=== PATIENT | female | born 1970 | race Caucasian/White ===

== ENCOUNTER 2018-04-03 10:36 | Emergency (ER) | payer OTHER ==
[~2018-04-03] VITALS: Ht 162.6 cm; Wt 40.8 kg
[~2018-04-03 10:36] MED LIST: AZITHROMYCIN250 M1 PO; DILAUDID2 M1 PO; GUAIFEN-CODEIN118 M1 PO; GUAIFENESIN-COD10 ML PO; MEDROL4 M2 PO; MORPHINE SULFAT30 M3 PO; NEURONTIN800 M2 PO; OXYCODONE HCL5 M1 PO; PROAIR HFA8.5 GM INH; SERTRALINE HCL50 MG PO; TAPAZOLE5 MG PO; TIZANIDINE HCL4 M1 PO; TRAZODONE HCL50 M1 PO; ZITHROMAX250 M2 PO
--- NOTE | 2018-04-03 10:59 | ED INFLUENZA/URI COMPLAINT ---
History of Present Illness General Chief Complaint: Dyspnea (COPD, CHF, Other) Stated Complaint: FEVER,COUGH,WEAKNESS,SOB Source: patient, family Exam Limitations: no limitations Vital Signs & Intake/Output Vital Signs & Intake/Output Vital Signs Date Time Temp Pulse Resp B/P B/P Pulse O2 O2 Flow FiO2 Mean Ox Delivery Rate 04/03 1221 98.9 79 20 98/63 94 Room Air 04/03 1210 92 Room Air 04/03 1042 97.6 89 18 118/80 91 Room Air Allergies Coded Allergies: No Known Allergies (01/20/18) Reconcile Medications Albuterol Sulfate (Proair Hfa) 8.5 GM HFA.AER.AD 2 PUFF INH Q4HR PRN WHEEZING Albuterol Sulfate (Proair Hfa) 90 MCG HFA.AER.AD 2 PUF INH Q4-6 PRN PRN BRONCHITIS Albuterol Sulfate 1.25 MG/3 ML VIAL.NEB 1 Vial INH/KELIN Q4-6 PRN SHORTNESS OF BREATH Azithromycin (Zithromax) 250 MG TABLET 1 DP PO AD bronchtis 2 the first day followed by 1 for days 2-5 Benzonatate (Tessalon Perle) 100 MG CAPSULE 1 CAP PO TID COUGH Codeine Phosphate/Guaifenesi (Guaifen-Codeine 100-10 MG/5 Ml) 10 MG-100 MG/5 ML LIQUID 10 ML PO Q6HR PRN COUGH Codeine Phosphate/Guaifenesi (Cheratussin AC Syrup) 10 MG-100 MG/5 ML LIQUID 10 ML PO BID PRN COUGH Fluticasone Propionate (Flonase Allergy Relief) 50 MCG/ACTUATION SPRAY.SUSP 2 SPRAY NELY DAILY PRN CONGESTION Gabapentin (Neurontin) 800 MG TABLET 1 TAB PO TID NERVE PAIN (Reported) Hydromorphone HCl (Dilaudid) 2 MG TABLET 1 TAB PO Q3 PRN SEVERE PAIN Levofloxacin (Levaquin) 500 MG TABLET 1 TAB PO DAILY BRONCHITIS [magic mouthwash] 10 ML PO TID PRN PHARYNGITIS 1:1:1 EQUAL PARTS SWISH AND SWALLOW Methimazole (Tapazole) 5 MG TABLET 5 MG PO BID hyperthyroid Methylprednisolone. (Medrol) 4 MG TAB.DS.PK 1 DP PO AD BRONCHITIS 6 on day 1 then reduce by one tablet daily until gone Methylprednisolone. (Medrol) 4 MG TAB.DS.PK 1 DP PO AD INFLAMMATION 6 on day 1 then reduce by one tablet daily until gone Morphine Sulfate (Morphine Sulfate ER) 30 MG TABLET.ER 1 TAB PO BID PAIN ( Reported) Oxycodone HCl 5 MG TABLET 1 TAB PO Q6H PAIN (Reported) Prednisone 10 MG TABLET 1 TAB PO DAILY INFLAMMATIN DAY1/DAY2 FOUR TAB DAY3/DAY4 THREE TAB DAY5/DAY6 TWO TABS DAY7 ONE TAB Sertraline HCl 50 MG TABLET 1 TAB PO DAILY MENTAL HEALTH (Reported) Tizanidine HCl 4 MG TABLET 1 TAB PO TID MUSCLE RELAXER (Reported) Trazodone HCl 50 MG TABLET 1 TAB PO PRN SLEEP (Reported) Triage Note: REPORTS COUGH X 3 DAYS AND WORSENING. ALSO LOOSING HER VOICE. CONOGESTED COUGH NOTED AT TRIAGE, NON PRODUCTIVE. Triage Nurses Notes Reviewed? yes Onset: Gradual Duration: constant Timing: recent history Severity: severe Severity Numbers: 7 HPI: Patient is a 47-year-old female with a past medical history of emphysema for smoker who since emergent with a three-day history of nonproductive cough chills body aches weakness fatigue and sore throat. Positive sick contacts at home. Patient has been taking her Ventolin with relief of symptoms. Denies any chest pain arm pain jaw pain nausea vomiting leg swelling hemoptysis or fevers patient also complaining of hoarseness AND sore throat (Teo Greco) Past History Travel History Traveled to [place] past 21 day No Medical History Any Pertinent Medical History? 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 No (Teo Greco) Review of Systems Review of Systems Constitutional: Reports: no symptoms. EENTM: Reports: see HPI. Respiratory: Reports: see HPI, cough. Cardiovascular: Reports: no symptoms. GI: Reports: no symptoms. Genitourinary: Reports: no symptoms. Musculoskeletal: Reports: see HPI. Skin: Reports: no symptoms. Neurological/Psychological: Reports: no symptoms. Hematologic/Endocrine: Reports: no symptoms. Immunologic/Allergic: Reports: no symptoms. All Other Systems: Reviewed and Negative (Teo Greco) Physical Exam Physical Exam General Appearance: no apparent distress, alert, thin Head: atraumatic Eyes: Bilateral: normal appearance, PERRL, EOMI. Ears, Nose, Throat: moist mucous membrane, hearing grossly normal, Tympanic normal, nasal congestion, pharyngeal erythema Neck: normal inspection, supple Respiratory: chest non-tender, no respiratory distress, wheezing Cardiovascular: regular rate/rhythm Gastrointestinal: normal bowel sounds, soft, non-tender Extremities: normal inspection, no edema Neurologic/Psych: no motor/sensory deficits, awake, alert, oriented x 3, normal gait Skin: intact, normal color, warm/dry Core Measures Sepsis Present: No Sepsis Focused Exam Completed? No (Teo Greco) Progress Differential Diagnosis: influenza, meningitis, neutropenia, otitis, pneumonia, pharyngitis, sinusitis Plan of Care: Orders Procedure Date/time Status THROAT CULTURE W/QUICK STREP 04/03 1202 Active Patient on initial presentation is resting comfortably at bedside no respiratory distress mild expiratory wheezing oxygen saturation 94% Patient was afebrile It was noted that patient's initial oxygen saturation was 91% at rest. Patient does have audible wheezing however no respiratory distress Chest x-ray shows progressive emphysema however no overt findings of pneumonia patient was ambulated down the hallway after nebulizer in which nursing staff notes that patient had 89% oxygen saturation with no respiratory distress, I discussed with patient the recommendation of admission to the hospital for COPD and bronchitis where patient had a long talk with her family members and decided that she wanted to try the occasions at home first and will return if symptoms worsen. I discussed the risks of leaving AGAINST MEDICAL ADVICE in which she was aware. Upon discharge patient looks well no apparent distress and will comply with discharge instructions and had no questions Diagnostic Imaging: Viewed by Me: Radiology Read. Radiology Impression: SEE COMMENTS CXR Impression: SEE COMMENTS Initial ED EKG: none Comments: PATIENT: KELSEY SANDRA PRESENT AGE: 47 PATIENT ACCOUNT NO: [id number] : 69 LOCATION: [facility] ORDERING PHYSICIAN: Teo HARRIS SERVICE DATE: 04/03/18 EXAM TYPE: RAD - XRY-CHEST XRAY, TWO VIEWS EXAMINATION: XR CHEST CLINICAL INFORMATION: Nonproductive cough and hypoxia COMPARISON: Previous chest x-rays most recent Mar 23 2018 TECHNIQUE: 2 views of the chest were obtained. FINDINGS: The cardiac and mediastinal contours are stable. There is evidence of severe emphysematous change with marked upper lobe bulla and crowding of lung markings in the lower lung lamar. This does not appear appreciably changed. No definite evidence of a pneumonia is seen. There are 2 adjacent left upper lobe nodules that do not appear appreciably changed. There is a nodular density that projects over the right anterior first rib that is stable as well. There is no pleural effusion or pneumothorax. There are degenerative changes of the spine. IMPRESSION: Severe emphysema with marked bullous disease in the upper lungs. No evidence for acute disease in the chest. 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:KELSEY DATE/TIME TRANSCRIBED:04/03/181138 (Ruben HARRIS,Teo) Departure Departure Disposition: HOME OR SELF CARE Condition: Stable Clinical Impression Primary Impression: Bronchitis Secondary Impressions: COPD (chronic obstructive pulmonary disease), Pharyngitis Referrals: Pratibha HIDALGO,Vijaya (PCP/Family) Additional Instructions: As discussed begin the prescription of albuterol vials for your nebulizer at home, continue your previously prescribed rescue inhaler, begin the prescription of Magic mouthwash for sore throat, Flonase for congestion, Tessalon Perles and Cheratussin for cough Levaquin for your symptoms, Medrol Dosepak for inflammation 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 Prescriptions waiting at [facility]. If symptoms worsen or if YOU develop new concerning symptoms return to emergency room Departure Forms: Customer Survey General Discharge Information Prescriptions: Current Visit Scripts Levofloxacin (Levaquin) 1 TAB PO DAILY #10 TAB Benzonatate (Tessalon Perle) 1 CAP PO TID #15 CAP Codeine Phosphate/Guaifenesi (Cheratussin AC Syrup) 10 ML PO BID PRN COUGH #100 ML Fluticasone Propionate (Flonase Allergy Relief) 2 SPRAY NELY DAILY PRN CONGESTION #1 BOT Albuterol Sulfate 1 Vial INH/KELIN Q4-6 PRN SHORTNESS OF BREATH #150 ML Methylprednisolone. (Medrol) 1 DP PO AD #1 DP 6 on day 1 then reduce by one tablet daily until gone [magic mouthwash] 10 ML PO TID PRN PHARYNGITIS #100 ML 1:1:1 EQUAL PARTS SWISH AND SWALLOW Prednisone 1 TAB PO DAILY #19 TAB DAY1/DAY2 FOUR TAB DAY3/DAY4 THREE TAB DAY5/DAY6 TWO TABS DAY7 ONE TAB (Teo Greco) PA/PLAN MANAGER Co-Sign Statement Statement: ED Attending supervision documentation- I saw and evaluated the patient. I have also reviewed all the pertinent lab results and diagnostic results. I agree with the findings and the plan of care as documented in the PA's/PLAN MANAGER's documentation. x I have reviewed the ED Record and agree with the PA's/PLAN MANAGER's documentation. [] Additions or exceptions (if any) to the PAs/PLAN MANAGER's note and plan are summarized below: [] (Jeremy HIDALGO,Gamal)
--- NOTE | 2018-04-03 11:47 | RADIOLOGY REPORT ---
EXAMINATION: XR CHEST CLINICAL INFORMATION: Nonproductive cough and hypoxia COMPARISON: Previous chest x-rays most recent Mar 23 2018 TECHNIQUE: 2 views of the chest were obtained. FINDINGS: The cardiac and mediastinal contours are stable. There is evidence of severe emphysematous change with marked upper lobe bulla and crowding of lung markings in the lower lung lamar. This does not appear appreciably changed. No definite evidence of a pneumonia is seen. There are 2 adjacent left upper lobe nodules that do not appear appreciably changed. There is a nodular density that projects over the right anterior first rib that is stable as well. There is no pleural effusion or pneumothorax. There are degenerative changes of the spine. IMPRESSION: Severe emphysema with marked bullous disease in the upper lungs. No evidence for acute disease in the chest.
[2018-04-03] MEDS ORDERED: ALBUTEROL1.25 MG/1 INH/SOL (11:50)
[2018-04-03] MEDS ORDERED: TESSALON PERLE100 M1 PO (11:50)
[2018-04-03] MEDS ORDERED: LEVAQUIN500 M1 PO (11:50)
[2018-04-03] MEDS ORDERED: CHERATUSSIN AC118 M1 PO (11:50)
[2018-04-03] MEDS ORDERED: MEDROL4 M2 PO (11:50)
[2018-04-03] MEDS ORDERED: FLONASE ALLERG9.9 ML NAS (11:50)
[2018-04-03] MEDS ORDERED: magic mouthwash PO (11:52)
[2018-04-03 12:21] VITALS: BP 98/63
[2018-04-03] MEDS ORDERED: PREDNISONE10 M2 PO (13:18)
== END 2018-04-03 13:19 ==
LOC: ERH 10:36
DX: J44.9 Chronic obstructive pulmonary disease, unspecified (principal); Z87.891 Personal history of nicotine dependence
CPT/HCPCS: 71046